=== PATIENT | male | born 1970 | race Caucasian/White ===

== ENCOUNTER 2021-02-06 14:07 | Emergency (ER) | payer SELFPAY ==
[~2021-02-06 14:07] MED LIST: ASPIRIN325 MG PO; LIPITOR40 MG PO; LOPRESSOR 25 MG25 MG PO; NORVASC 5 MG TAB5 MG PO
[2021-02-06 15:21] LABS: RED BLOOD COUNT 5.62 M/UL (4.20-5.50); WHITE BLOOD COUNT 6.3 K/UL (4.5-11.0)
[2021-02-06 15:45] LABS: BUN/CREATININE RATIO 15 (0-10)
[2021-02-06] MEDS ORDERED: NAPROSYN500 MG PO (17:12)
[2021-02-06] MEDS ORDERED: CYCLOBENZAPRINE10 MG PO (17:12)
== END 2021-02-06 17:22 | disposition home or self-care (01) ==
LOC: ER1 14:07
PROVIDERS: Physician Assistant
DX: S39.012A Strain of muscle, fascia and tendon of lower back, initial encounter (principal); R10.9 Unspecified abdominal pain; I11.9 Hypertensive heart disease without heart failure; E78.5 Hyperlipidemia, unspecified; X50.0XXA Overexertion from strenuous movement or load, initial encounter
CPT/HCPCS: 80053; 81001; 85025; 99284

== ENCOUNTER 2021-02-07 22:03 | Emergency (ER) | payer SELFPAY ==
[~2021-02-07 22:03] MED LIST changes: +CYCLOBENZAPRINE10 MG PO; +NAPROSYN500 MG PO
[2021-02-08 02:55] LABS: HEMOGLOBIN 16.9 gm/dl (14.0-17.5); RED BLOOD COUNT 5.68 M/UL (4.20-5.50)
[2021-02-08 03:00] LABS: WHITE BLOOD COUNT 8.2 K/UL (4.5-11.0)
[2021-02-08 03:14] LABS: BUN/CREATININE RATIO 13 (0-10)
== END 2021-02-08 06:25 | disposition home or self-care (01) ==
LOC: ER1 22:03
PROVIDERS: Physician Assistant Medical
DX: S39.011A Strain of muscle, fascia and tendon of abdomen, initial encounter (principal); S29.012A Strain of muscle and tendon of back wall of thorax, initial encounter; F17.210 Nicotine dependence, cigarettes, uncomplicated; Z95.1 Presence of aortocoronary bypass graft; X50.1XXA Overexertion from prolonged static or awkward postures, initial encounter
CPT/HCPCS: 80053; 83690; 85025; 96374; 96376; 99284; J1885

== ENCOUNTER 2021-04-29 20:27 | Emergency (ER) | payer BC ==
[2021-04-29 21:52] LABS: HEMOGLOBIN 15.5 gm/dl (14.0-17.5); RED BLOOD COUNT 5.92 M/UL (4.20-5.50); WHITE BLOOD COUNT 8.6 K/UL (4.5-11.0)
== END 2021-04-29 22:53 | disposition home or self-care (01) ==
LOC: ER1 20:27
PROVIDERS: Physician Assistant
DX: S70.12XA Contusion of left thigh, initial encounter (principal); R22.32 Localized swelling, mass and lump, left upper limb; I25.10 Atherosclerotic heart disease of native coronary artery without angina pectoris; I25.2 Old myocardial infarction; E78.5 Hyperlipidemia, unspecified; I10 Essential (primary) hypertension; F17.210 Nicotine dependence, cigarettes, uncomplicated; X58.XXXA Exposure to other specified factors, initial encounter
CPT/HCPCS: 73110; 85025; 85610; 99283

== ENCOUNTER 2021-06-17 17:46 | Emergency (ER) | payer BC ==
[2021-06-17] MEDS ORDERED: IBU800 MG PO (20:19)
== END 2021-06-17 20:35 | disposition home or self-care (01) ==
LOC: ER1 17:46
DX: M72.2 Plantar fascial fibromatosis (principal); E66.01 Morbid (severe) obesity due to excess calories; I10 Essential (primary) hypertension
CPT/HCPCS: 73630; 99283

== ENCOUNTER 2021-09-09 19:10 | Emergency (ER) | payer SELFPAY ==
[~2021-09-09 19:10] MED LIST changes: +IBU800 MG PO
[2021-09-09 19:50] LABS: HEMOGLOBIN 17.8 gm/dl (14.0-17.5); RED BLOOD COUNT 5.93 M/UL (4.20-5.50); WHITE BLOOD COUNT 3.9 K/UL (4.5-11.0)
[2021-09-09 20:23] LABS: BUN/CREATININE RATIO 16 (0-10)
[2021-09-09] MEDS ORDERED: LISINOPRIL-HCT1 EACH PO (21:43)
== END 2021-09-09 23:38 | disposition home or self-care (01) ==
LOC: ER1 19:10
PROVIDERS: Physician Assistant
DX: U07.1 COVID-19 (principal); Z23 Encounter for immunization; I10 Essential (primary) hypertension; F17.210 Nicotine dependence, cigarettes, uncomplicated
CPT/HCPCS: 71045; 80053; 82550; 82553; 83874; 84484; 85025; 93005; 99284; M0247; U0002

== ENCOUNTER 2021-10-11 19:37 | Emergency (ER) | payer SELFPAY ==
[~2021-10-11 19:37] MED LIST changes: +LISINOPRIL-HCT1 EACH PO
[2021-10-11 20:24] LABS: HEMOGLOBIN 15.8 gm/dl (14.0-17.5); RED BLOOD COUNT 5.36 M/UL (4.20-5.50); WHITE BLOOD COUNT 6.2 K/UL (4.5-11.0)
[2021-10-11 20:50] LABS: BUN/CREATININE RATIO 20 (0-10)
[2021-10-11] MEDS ORDERED: Voltaren Gel 1 % TOP (21:24)
== END 2021-10-11 21:45 | disposition home or self-care (01) ==
LOC: ER1 19:37
PROVIDERS: Physician Assistant Medical
DX: M25.571 Pain in right ankle and joints of right foot (principal); M25.572 Pain in left ankle and joints of left foot; G89.29 Other chronic pain; I11.9 Hypertensive heart disease without heart failure; Z95.5 Presence of coronary angioplasty implant and graft; F17.210 Nicotine dependence, cigarettes, uncomplicated
CPT/HCPCS: 73630; 80053; 84550; 85025; 96372; 99283; J1885

== ENCOUNTER 2021-12-12 20:53 | Emergency (ER) | payer SELFPAY ==
[~2021-12-12 20:53] MED LIST changes: +Voltaren Gel 1 % TOP
[2021-12-12 22:01] LABS: HEMOGLOBIN 16.3 gm/dl (14.0-17.5); RED BLOOD COUNT 5.61 M/UL (4.20-5.50); WHITE BLOOD COUNT 7.2 K/UL (4.5-11.0)
[2021-12-12 22:12] LABS: BUN/CREATININE RATIO 17 (0-10)
== END 2021-12-12 23:35 | disposition home or self-care (01) ==
LOC: ER1 20:53
PROVIDERS: Physician Assistant Medical
DX: K62.5 Hemorrhage of anus and rectum (principal); R03.0 Elevated blood-pressure reading, without diagnosis of hypertension; F17.210 Nicotine dependence, cigarettes, uncomplicated; Z95.5 Presence of coronary angioplasty implant and graft
CPT/HCPCS: 80053; 83605; 85025; 85610; 99284; Q9967

== ENCOUNTER 2022-01-01 13:36 | Emergency (ER) | payer SELFPAY ==
[2022-01-01] MEDS ORDERED: MELOXICAM15 MG PO (17:17)
== END 2022-01-01 17:35 | disposition home or self-care (01) ==
LOC: ER1 13:36
DX: M79.671 Pain in right foot (principal); M79.672 Pain in left foot; M25.571 Pain in right ankle and joints of right foot; M25.572 Pain in left ankle and joints of left foot; I11.9 Hypertensive heart disease without heart failure; F17.210 Nicotine dependence, cigarettes, uncomplicated
CPT/HCPCS: 96372; 99283; J1885